=== PATIENT | female | born 1955 | race Caucasian/White ===

== ENCOUNTER 2018-06-04 12:26 | Emergency (ER) | payer OTHER ==
[2018-06-04 13:17] VITALS: BP 139/74
--- NOTE | 2018-06-04 13:58 | EDM.PDOC ---
ED HPI GENERAL MEDICAL PROBLEM - General Chief Complaint: Lower Extremity Injury/Pain Stated Complaint: LEG SWOLLEN AND PAINFUL TO TOUCH Time Seen by Provider: 06/04/18 12:35 Source of Information: Reports: Patient History Limitations: Reports: No Limitations - History of Present Illness INITIAL COMMENTS - FREE TEXT/NARRATIVE: The patient presents with a couple lumps to her left lower leg. She noticed them a couple days ago. She has mild tenderness with palpation. She has no injury to her leg. She has no chest pain or shortness of breath. She has no history of DVT or PE. She did not injure her leg. Onset: Gradual Duration: Day(s): (2) Location: Reports: Lower Extremity, Left (posterior calf) Quality: Reports: Ache Severity: Mild Improves with: Reports: None Worsens with: Reports: None Associated Symptoms: Reports: No Other Symptoms Left Posterior Leg Pain Score (Numeric/FACES): 6 - Related Data Allergies Allergy/AdvReac Type Severity Reaction Status Date / Time codeine Allergy Hives Verified 08/28/14 02:26 levofloxacin [From Levaquin] Allergy Cannot Verified 08/28/14 02:26 Remember prochlorperazine edisylate Allergy Anxiety Verified 08/28/14 02:26 [From Compazine] prochlorperazine maleate Allergy Anxiety Verified 08/28/14 02:26 [From Compazine] Home Meds: Home Meds Venlafaxine [Effexor XR] 75 mg PO DAILY 08/28/14 [History] Cholecalciferol (Vitamin D3) [Vitamin D3] 5,000 unit PO ASDIRECTED 06/04/18 [ History] Past Medical History - Past Health History Medical/Surgical History: Denies Medical/Surgical History Cardiovascular History: Reports: High Cholesterol Gastrointestinal History: Reports: Chronic Constipation Musculoskeletal History: Reports: Other (See Below) Other Musculoskeletal History: tennis elbows Psychiatric History: Reports: Depression, Other (See Below) Other Psychiatric History: used for menopause Social & Family History - Tobacco Use Smoking Status *Q: Never Smoker - Caffeine Use Caffeine Use: Reports: Coffee - Recreational Drug Use Recreational Drug Use: No Review of Systems - Review of Systems Review Of Systems: See Below Constitutional: Reports: No Symptoms Eyes: Reports: No Symptoms Ears: Reports: No Symptoms Nose: Reports: No Symptoms Mouth/Throat: Reports: No Symptoms Respiratory: Reports: No Symptoms Cardiovascular: Reports: No Symptoms GI/Abdominal: Reports: No Symptoms Genitourinary: Reports: No Symptoms Musculoskeletal: Reports: Other (2 lumps to the back of her left lower leg) ED EXAM, GENERAL - Physical Exam Exam: See Below Exam Limited By: No Limitations General Appearance: Alert, No Apparent Distress Ears: Normal External Exam Nose: Normal Inspection Head: Atraumatic, Normocephalic Neck: Normal Inspection Respiratory/Chest: No Respiratory Distress, Lungs Clear, Normal Breath Sounds Cardiovascular: Regular Rate, Rhythm, No Edema, No Murmur GI/Abdominal: Soft, Non-Tender, No Organomegaly, No Mass Extremities: Other (2 lumps to the left lower posterior leg. No pain upon palpation to the left leg. Good sensation and pulses distally.) Course - Vital Signs Last Recorded V/S: Last Vital Signs Temp 97.1 F 06/04/18 13:10 Pulse 81 06/04/18 13:10 Resp 20 06/04/18 13:10 BP 139/74 06/04/18 13:10 Pulse Ox 98 06/04/18 13:10 - Orders/Labs/Meds Orders: Active Orders 24 hr Category Date Time Status VL Duplex Lwr Ext Veins Ltd Lt [US] Stat Exams 06/04/18 12:50 Taken - Re-Assessments/Exams Free Text/Narrative Re-Assessment/Exam: 06/04/18 14:34 I did an US of her left leg and she has a superficial thrombophlebitis. 06/04/18 14:57 She cannot take aspirin. I will have her take some antiinflammatories and have her wear some compression hose and follow up with her doctor. Departure - Departure Time of Disposition: 15:00 Disposition: Home, Self-Care 01 Condition: Good Clinical Impression: Superficial thrombophlebitis of left leg - Discharge Information *PRESCRIPTION DRUG MONITORING PROGRAM REVIEWED*: No *COPY OF PRESCRIPTION DRUG MONITORING REPORT IN PATIENT CARMEN[place]A: No Referrals: Ml Grimaldo NP [Primary Care Provider] - 1 Week Forms: ED Department Discharge Additional Instructions: Wear compression stocking. Take the antiinflammatory as prescribed for a few days. Put warm compresses on the affected area 3 times per day for 3 days. Follow up with your doctor in 1 week. Please return if you are worse such as more pain, shortness of breath or chest pain. - My Orders Last 24 Hours: My Active Orders 06/04/18 12:50 VL Duplex Lwr Ext Veins Ltd Lt [US] Stat - Assessment/Plan Last 24 Hours: My Active Orders 06/04/18 12:50 VL Duplex Lwr Ext Veins Ltd Lt [US] Stat
--- NOTE | 2018-06-05 07:13 | US ---
Left lower extremity deep venous ultrasound: Duplex and color flow imaging was obtained of the left common femoral, proximal greater saphenous, superficial femoral, popliteal, posterior tibial and peroneal veins. Right common femoral vein was also evaluated. Findings: Thrombosed calf vein is seen. Normal phasic flow, augmentation and compression are otherwise seen within the deep veins. Impression: 1. Thrombosed calf pain compatible with thrombophlebitis. 2. No evidence of deep venous thrombosis is seen within the left lower extremity or within the right common femoral vein. Diagnostic code #3 Agree with preliminary report issued by [facility] ([facility] preliminary report dictated on 06/04/18, 3:42 PM Central Time)
== END 2018-06-04 15:15 | disposition home or self-care (01) ==
LOC: JD.ED 12:26
DX: I80.02 Phlebitis and thrombophlebitis of superficial vessels of left lower extremity (principal); E78.00 Pure hypercholesterolemia, unspecified; Z79.899 Other long term (current) drug therapy
CPT/HCPCS: 93971-26-LT; 93971-LT; 99283-25

== ENCOUNTER 2019-10-31 16:43 | Inpatient (IN) | payer OTHER ==
[2019-10-31] MEDS ORDERED: HYDROmorphone 0.5 MG/0.5 ML Syringe IVPUSH ONE ×3 (17:08→20:15)
[2019-10-31] MEDS ORDERED: Metoclopramide 10 MG/2 ML SDV IVPUSH ONE (17:08)
--- NOTE | 2019-10-31 17:12 | EDM.PDOC ---
ED HPI GENERAL MEDICAL PROBLEM - General Chief Complaint: Abdominal Pain Stated Complaint: [facility] Time Seen by Provider: 10/31/19 17:05 Source of Information: Reports: Patient History Limitations: Reports: No Limitations - History of Present Illness INITIAL COMMENTS - FREE TEXT/NARRATIVE: 63-year-old female presents to the ED with acute onset of diffuse epigastric abdominal pain that radiates through to her back. Her abdomen and perhaps slightly suprapubically. No fever or chills. She started to feel very nauseated at work but could not vomit. Coworkers finally got her to go home. Denies that she had not eaten all day and perhaps she was just hungry. She therefore went picked up a hamburger and ate it when she got home. Within 10 to 15 minutes she developed markedly increased severe epigastric pain with associated feeling like she was going to faint with increased nausea. She never did vomit. She has not had any diarrhea. Last bowel movement was yesterday. It seems to radiate through to the epigastrium right through to the mid back. It does hurt to take a deep breath. She did drink some coke and burping perhaps helped ease some of the discomfort. Lay down on her bed for a while but felt increasingly unwell and went to lay down on the cool bathroom floor. Her daughter phoned and no one answered the phone and therefore the ambulance was dispatched to her home. They identified her to be very nauseated and significant epigastric pain. She has been given Zofran 4 mg IV with no relief of the pain. Is had no previous abdominal surgery. She does have a history of renal colic and microhematuria. Patient reports that she does take a medication called Repatha--cutaneous medication once weekly for dyslipidemia. She takes this on Sundays. She always feels a little unwell for a couple of days after taking this medication. Search of this medicine is not known to cause biliary colic or pancreatitis. It can cause a gastroenteritis or diarrhea pattern. Onset: Today Onset Date: 10/31/19 Onset Time: 15:00 Duration: Hour(s): Location: Reports: Abdomen (Gastric pain radiating through to the mid back.) Quality: Reports: Ache (Pain is deep aching boring with a slight colicky component.) Severity: Severe (Was as bad as a 8-9 out of 10 after eating a hamburger.) Improves with: Reports: None Worsens with: Reports: Eating Context: Reports: Other (Continuous occurrence.). Denies: Activity (Seem to make it much worse.), Exercise, Lifting, Sick Contact, Trauma Associated Symptoms: Reports: Chest Pain, Diaphoresis, Loss of Appetite, Nausea/ Vomiting, Weakness. 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: IV/IO, Other (see below) Upper Abdomen Pain Score (Numeric/FACES): 8 - Related Data Allergies Allergy/AdvReac Type Severity Reaction Status Date / Time codeine Allergy Hives Verified 10/31/19 16:51 levofloxacin [From Levaquin] Allergy Cannot Verified 10/31/19 16:51 Remember prochlorperazine edisylate Allergy Anxiety Verified 10/31/19 16:51 [From Compazine] prochlorperazine maleate Allergy Anxiety Verified 10/31/19 16:51 [From Compazine] Home Meds: Home Meds Venlafaxine [Effexor XR] 75 mg PO DAILY 08/28/14 [History] Cholecalciferol (Vitamin D3) [Vitamin D3] 5,000 unit PO ASDIRECTED 06/04/18 [ History] Ascorbic Acid 500 mg PO DAILY 10/31/19 [History] Evolocumab [Repatha Syringe] 1 injection INJECT ASDIRECTED 10/31/19 [History] LORazepam [Ativan] 0.5 mg PO Q4HR PRN 10/31/19 [History] Past Medical History - Past Health History Medical/Surgical History: Denies Medical/Surgical History HEENT History: Reports: Impaired Vision Cardiovascular History: Reports: High Cholesterol Respiratory History: Reports: None Gastrointestinal History: Reports: Chronic Constipation Genitourinary History: Reports: None 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: 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 Musculoskeletal History: Reports: Other (See Below) Other Musculoskeletal History: tennis elbows Neurological History: Reports: None Psychiatric History: Reports: Depression Other Psychiatric History: used for menopause Endocrine/Metabolic History: Reports: None Hematologic History: Reports: None Immunologic History: Reports: None Oncologic (Cancer) History: Reports: None Dermatologic History: Reports: None - Infectious Disease History Infectious Disease History: Reports: None Social & Family History - Tobacco Use Smoking Status *Q: Never Smoker - Caffeine Use Caffeine Use: Reports: Coffee, Soda - Recreational Drug Use Recreational Drug Use: No - Living Situation & Occupation Living situation: Reports: (Employed) Occupation: Employed ED ROS GENERAL - Review of Systems Review Of Systems: See Below Constitutional: Reports: Malaise, Weakness, Fatigue, Diaphoresis (With the severe epigastric abdominal pain). Denies: Fever, Chills HEENT: Reports: Glasses Respiratory: Reports: Shortness of Breath. Denies: Wheezing, Pleuritic Chest Pain (Taking full deep breath makes the abdominal pain worse.), Cough Cardiovascular: Reports: Chest Pain (Pressure in the lower retrosternal chest), Lightheadedness (Patient with a severe pain. [place] like she might faint). Denies: Blood Pressure Problem, Claudication, Dyspnea on Exertion, Edema, Orthopnea, Palpitations Endocrine: Reports: Fatigue GI/Abdominal: Reports: Abdominal Pain, Constipation, Nausea. Denies: Vomiting : Reports: No Symptoms Musculoskeletal: Reports: Joint Pain (Times she has knee and hip and low back pain) Skin: Reports: No Symptoms Neurological: Reports: Dizziness (He notes lightheadedness and near syncopal feeling with the severity of the pain.) Psychiatric: Reports: Anxiety, Depression (On antidepressant medication.) Hematologic/Lymphatic: Reports: No Symptoms Immunologic: Reports: No Symptoms ED EXAM, GI/ABD - Physical Exam Exam: See Below Exam Limited By: No Limitations General Appearance: Alert, WD/WN, Moderate Distress, Other (All having quite a bit of epigastric abdominal pain. Signs show temperature of 36.4 with a heart rate of 71. Respiratory to 16. BP 159/86 pulse ox 98% on room air.) Eyes: Bilateral: Normal Appearance (No scleral icterus.) Throat/Mouth: Normal Inspection, Normal Lips, Normal Teeth, Normal Oropharynx Head: Atraumatic, Normocephalic Neck: Normal Inspection, Supple, Non-Tender, Full Range of Motion. No: Lymphadenopathy (L), Lymphadenopathy (R) Respiratory/Chest: No Respiratory Distress, Lungs Clear, Normal Breath Sounds, No Accessory Muscle Use Cardiovascular: Normal Peripheral Pulses, Regular Rate, Rhythm, No Edema, No Gallop, No Murmur, No Rub GI/Abdominal Exam: No Organomegaly, No Distention, No Mass, Pelvis Stable, Tender (Is very tender to palpation in the epigastrium and right upper quadrant of the abdomen with a positive Wiley sign.), Abnormal Bowel Sounds. No: Distended Back Exam: Normal Inspection, Full Range of Motion. No: CVA Tenderness (L), CVA Tenderness (R) Extremities: Normal Inspection, Normal Range of Motion, Non-Tender. No: Pedal Edema Neurological: Alert, Oriented, CN II-XII Intact, Normal Cognition Psychiatric: Normal Affect, Normal Mood Skin Exam: Warm, Dry, Intact, Normal Color, No Rash Course - Vital Signs Last Recorded V/S: Last Vital Signs Temp 36.2 C 10/31/19 18:09 Pulse 94 10/31/19 18:09 Resp 18 10/31/19 18:09 BP 155/75 H 10/31/19 18:09 Pulse Ox 99 10/31/19 18:09 - Orders/Labs/Meds Orders: Active Orders 24 hr Category Date Time Status Abdomen Pelvis w Cont [CT] Stat Exams 10/31/19 20:33 Ordered GLYCOSYLATED HEMOGLOBIN,HGBA1C [CHEM] Stat Lab 10/31/19 20:15 Ordered LIPASE [CHEM] Stat Lab 10/31/19 20:14 Ordered TRIGLYCERIDES [CHEM] Stat Lab 10/31/19 20:32 Ordered Dextrose 5%-0.9% NaCl [Dextrose 5%-Normal Saline] 1,000 Med 10/31/19 17:15 Active ml IV ASDIRECTED Ketorolac [Toradol] Med 10/31/19 17:15 Active 30 mg IVPUSH ONETIME Medication Orders Dextrose/Sodium Chloride (Dextrose 5%-Normal Saline) 1,000 mls @ 999 mls/hr IV ASDIRECTED ELINA Last Admin: 10/31/19 17:22 Dose: 999 mls/hr Ketorolac Tromethamine (Toradol) 30 mg IVPUSH ONETIME ELINA Last Admin: 10/31/19 17:20 Dose: 30 mg Labs: Laboratory Tests 10/31/19 10/31/19 10/31/19 Range/Units 18:32 18:32 18:32 WBC 7.65 (3.98-10.04) K/mm3 RBC 4.38 (3.98-5.22) M/mm3 Hgb 13.1 D (11.2-15.7) gm/dl Hct 41.5 (34.1-44.9) % MCV 94.7 D (79.4-94.8) fl MCH 29.9 (25.6-32.2) pg MCHC 31.6 L (32.2-35.5) g/dl RDW Std Deviation 41.4 (36.4-46.3) fL Plt Count 145 L (182-369) K/mm3 MPV 11.5 (9.4-12.3) fl Neut % (Auto) 81.2 H (34.0-71.1) % Lymph % (Auto) 14.5 L (19.3-51.7) % [place] % (Auto) 3.7 L (4.7-12.5) % Eos % (Auto) 0.4 L (0.7-5.8) Baso % (Auto) 0.1 (0.1-1.2) % Neut # (Auto) 6.21 H (1.56-6.13) K/mm3 Lymph # (Auto) 1.11 L (1.18-3.74) K/mm3 [place] # (Auto) 0.28 (0.24-0.36) K/mm3 Eos # (Auto) 0.03 L (0.04-0.36) K/mm3 Baso # (Auto) 0.01 (0.01-0.08) K/mm3 PT 10.7 (9.7-12.0) SECONDS INR 0.98 APTT 23 (22-31) SECONDS Sodium 143 (136-145) mEq/L Potassium 4.0 (3.5-5.1) mEq/L Chloride 108 H (98-107) mEq/L Carbon Dioxide 27 (21-32) mEq/L Anion Gap 12.0 (5-15) BUN 12 (7-18) mg/dL Creatinine 1.0 (0.55-1.02) mg/dL Est Cr Clr Drug Dosing 54.60 mL/min Estimated GFR (MDRD) 56 (>60) mL/min BUN/Creatinine Ratio 12.0 L (14-18) Glucose 281 H (80-115) mg/dL Calcium 8.1 L (8.5-10.1) mg/dL Magnesium 1.7 L (1.8-2.4) mg/dl Total Bilirubin 0.3 (0.2-1.0) mg/dL GGT 21 (5-55) U/L AST 22 (15-37) U/L ALT 33 (14-59) U/L Alkaline Phosphatase 87 (46-116) U/L Troponin I < 0.017 (0.00-0.056) ng/mL C-Reactive Protein 0.5 (<1.0) mg/dL Total Protein 6.5 (6.4-8.2) g/dl Albumin 3.3 L (3.4-5.0) g/dl Globulin 3.2 gm/dL Albumin/Globulin Ratio 1.0 (1-2) Amylase 3532 H* (25-115) U/L Urine Color (Yellow) Urine Appearance (Clear) Urine pH (5.0-8.0) Ur Specific [place] (1.005-1.030) Urine Protein (Negative) Urine Glucose (UA) (Negative) Urine Ketones (Negative) Urine Occult Blood (Negative) Urine Nitrite (Negative) Urine Bilirubin (Negative) Urine Urobilinogen (0.2-1.0) Ur Leukocyte Esterase (Negative) Urine RBC (0-5) /hpf Urine WBC (0-5) /hpf Ur Squamous Epith Cells (0-5) /hpf Urine Bacteria (FEW) /hpf Urine Mucus (FEW) /hpf 10/31/19 Range/Units 19:43 WBC (3.98-10.04) K/mm3 RBC (3.98-5.22) M/mm3 Hgb (11.2-15.7) gm/dl Hct (34.1-44.9) % MCV (79.4-94.8) fl MCH (25.6-32.2) pg MCHC (32.2-35.5) g/dl RDW Std Deviation (36.4-46.3) fL Plt Count (182-369) K/mm3 MPV (9.4-12.3) fl Neut % (Auto) (34.0-71.1) % Lymph % (Auto) (19.3-51.7) % [place] % (Auto) (4.7-12.5) % Eos % (Auto) (0.7-5.8) Baso % (Auto) (0.1-1.2) % Neut # (Auto) (1.56-6.13) K/mm3 Lymph # (Auto) (1.18-3.74) K/mm3 [place] # (Auto) (0.24-0.36) K/mm3 Eos # (Auto) (0.04-0.36) K/mm3 Baso # (Auto) (0.01-0.08) K/mm3 PT (9.7-12.0) SECONDS INR APTT (22-31) SECONDS Sodium (136-145) mEq/L Potassium (3.5-5.1) mEq/L Chloride (98-107) mEq/L Carbon Dioxide (21-32) mEq/L Anion Gap (5-15) BUN (7-18) mg/dL Creatinine (0.55-1.02) mg/dL Est Cr Clr Drug Dosing mL/min Estimated GFR (MDRD) (>60) mL/min BUN/Creatinine Ratio (14-18) Glucose (80-115) mg/dL Calcium (8.5-10.1) mg/dL Magnesium (1.8-2.4) mg/dl Total Bilirubin (0.2-1.0) mg/dL GGT (5-55) U/L AST (15-37) U/L ALT (14-59) U/L Alkaline Phosphatase (46-116) U/L Troponin I (0.00-0.056) ng/mL C-Reactive Protein (<1.0) mg/dL Total Protein (6.4-8.2) g/dl Albumin (3.4-5.0) g/dl Globulin gm/dL Albumin/Globulin Ratio (1-2) Amylase (25-115) U/L Urine Color Light yellow (Yellow) Urine Appearance Clear (Clear) Urine pH 6.5 (5.0-8.0) Ur Specific [place] 1.025 (1.005-1.030) Urine Protein Negative (Negative) Urine Glucose (UA) 2+ H (Negative) Urine Ketones Negative (Negative) Urine Occult Blood Negative (Negative) Urine Nitrite Negative (Negative) Urine Bilirubin Negative (Negative) Urine Urobilinogen 0.2 (0.2-1.0) Ur Leukocyte Esterase Negative (Negative) Urine RBC 0-5 (0-5) /hpf Urine WBC 0-5 (0-5) /hpf Ur Squamous Epith Cells 0-5 (0-5) /hpf Urine Bacteria Rare (FEW) /hpf Urine Mucus Rare (FEW) /hpf Meds: Medications Generic Name Dose Route Start Last Admin Trade Name Freq PRN Reason Stop Dose Admin Dextrose/Sodium Chloride 1,000 mls @ 999 mls/hr 10/31/19 17:15 10/31/19 17:22 Dextrose 5%-Normal Saline IV 999 mls/hr ASDIRECTED ELINA Administration Ketorolac Tromethamine 30 mg 10/31/19 17:15 10/31/19 17:20 Toradol IVPUSH 30 mg ONETIME ELINA Administration Discontinued Medications Generic Name Dose Route Start Last Admin Trade Name Freq PRN Reason Stop Dose Admin Hydromorphone HCl 0.25 mg 10/31/19 17:08 10/31/19 17:18 Dilaudid IVPUSH 10/31/19 17:09 0.25 mg ONETIME ONE Administration Hydromorphone HCl 0.5 mg 10/31/19 17:48 10/31/19 18:07 Dilaudid IVPUSH 10/31/19 17:49 0.5 mg ONETIME ONE Administration Hydromorphone HCl 0.5 mg 10/31/19 20:15 10/31/19 20:23 Dilaudid IVPUSH 10/31/19 20:16 0.5 mg ONETIME ONE Administration Metoclopramide HCl 5 mg 10/31/19 17:08 10/31/19 17:16 Reglan IVPUSH 10/31/19 17:09 5 mg ONETIME ONE Administration - Radiology Interpretation Free Text/Narrative:: 63-year-old female presents to the ED with acute onset of severe epigastric perhaps left upper quadrant abdominal pain rating through to her back while at work [employer] this afternoon. The discomfort was associate with development of significant nausea but she could not vomit. Eventually she left work and went home. She recognized that she had not yet eaten today and therefore picked up a hamburger on the way home. After she ate this hamburger the pain intensified about 10 times. She felt like she was going to pass out. She was diaphoretic and nausea increased in intensity. It was felt mostly in her epigastrium radiating through to her mid back. Is still present but not nearly as intense as it was. Because she did not answer the phone after calling her daughter paramedics were dispatched to her home. They found her lying on the bathroom floor trying to cool down due to illness. An IV was started and she was given Zofran 4 mg IV in route to the hospital. She admits that she is very sensitive to pain medication and gets loopy easily. Therefore requests small doses of analgesia. Examination is compatible with acute biliary colic with marked tenderness in the epigastrium and right upper quadrant of the abdomen along the costal margin. She does have a positive Wiley sign. I will ultrasound her gallbladder after KUB and labs are collected. IV will be D5 normal saline at open. She will be given Reglan 5 mg IV with Toradol 30 mg IV and Dilaudid 0.25 mg IV. - Re-Assessments/Exams Free Text/Narrative Re-Assessment/Exam: 10/31/19 17:46 KUB reveals sparsity of stool throughout the colon but also no gas within the small bowel and very sparse amounts of gas within the large bowel but there is gas in the rectal vault. Appears to be a mild ileus-like pattern. There is no signs of bowel obstruction. Bedside ultrasound performed and I was able to visualize the gallbladder fairly well considering she just ate. There possibly is a small stone in the neck of the gallbladder but there was no thickening of the gallbladder wall or pericholecystic fluid. I visualize the common bile duct well enough to comment. [place] pain is better but she can take a little bit more pain medication. We will therefore repeat Dilaudid 0.25 mg IV. 10/31/19 19:26 White count is 7.65 with 81% neutrophils and no bands cells reported. Hemoglobin is 13.1 with hematocrit of 41.5. MCV is mildly elevated at 94.7. Platelet counts 145,000. PT is 10.7 with an INR of 0.98. PTT is 23 sodium 143 with a potassium of 4.0. Chloride 108 with a bicarb of 27. Anion gap is normal at 12.0. BUN is 12 with a creatinine of 1.0 hours 56. Kos is elevated at 281. Calcium is 8.1 with a magnesium of 1.7. Slightly low. Liver function is completely normal alk phos days is 83. GGT is 21. Troponin I is less than 0.017. C-reactive protein is 0.5 total protein is 6.5 with slightly low albumin fraction at 3.3. Amylase is pending. 10/31/19 20:16 these came back markedly elevated at 3532. This confirms clinical suspicion of acute pancreatitis most likely secondary to the use of Repatha [place] she takes subcutaneously every 2 weeks for reduction of triglycerides and cholesterol. Appreciated that the last 3 times she has taken this drug she has developed vague abdominal pain to the point that she cannot participate in normal activities or go to work for a day or so. She never uses any alcohol. She has not had any abdominal trauma. Her cholesterol is very low apparently on the Repatha. She is on Effexor 75 mg ER but has been on this medication for a lengthy period of time and this medication can cause pancreatitis. Order a serum lipase. We do have one observation bed left in the hospital and I will speak to the hospitalist in this regard. IV will be normal saline at 125 mils per hour at this time. Her blood sugar is elevated I will make sure she is not diabetic by doing a glycosylated protein. She is having more pain at this time and she was given another 0.5 mg dose of Dilaudid. Will ask Dr. Singh whether or not she wishes to pursue a CT of the abdomen tonight. 10/31/19 20:[address] Singh on-call hospitalist and she has agreed to admission to the [facility] floor on telemetry per observation status which is the last been in the hospital. He has asked that I perform a CT of the abdomen with IV contrast to have a better look at her pancreas. She also asked me to order a serum triglyceride level which I will do. Departure - Departure Time of Disposition: 20:40 Disposition: Home, Self-Care 01 Condition: Fair Clinical Impression: Pancreatitis, acute Qualifiers: Pancreatitis type: drug induced Acute pancreatitis complication: no infection or necrosis Qualified Code(s): K85.30 - Drug induced acute pancreatitis without necrosis or infection Abdominal pain Qualifiers: Abdominal location: epigastric Qualified Code(s): R10.13 - Epigastric pain - Discharge Information *PRESCRIPTION DRUG MONITORING PROGRAM REVIEWED*: Not Applicable *COPY OF PRESCRIPTION DRUG MONITORING REPORT IN PATIENT [facility]: Not Applicable Referrals: PCP,Unknown [Ordering Only Provider] - Forms: ED Department Discharge Sepsis Event Note - Evaluation Sepsis Screening Result: No Definite Risk - Focused Exam Vital Signs: Vital Signs Temp Pulse Resp BP Pulse Ox 10/31/19 18:09 36.2 C 94 18 155/75 H 99 10/31/19 16:47 36.4 C 71 16 159/86 H 98 Date Exam was Performed: 10/31/19 Time Exam was Performed: 20:34 - My Orders Last 24 Hours: My Active Orders 10/31/19 17:15 Dextrose 5%-0.9% NaCl [Dextrose 5%-Normal Saline] 1,000 ml IV ASDIRECTED Ketorolac [Toradol] 30 mg IVPUSH ONETIME 10/31/19 20:14 LIPASE [CHEM] Stat 10/31/19 20:15 GLYCOSYLATED HEMOGLOBIN,HGBA1C [CHEM] Stat 10/31/19 20:32 TRIGLYCERIDES [CHEM] Stat 10/31/19 20:33 Abdomen Pelvis w Cont [CT] Stat - Assessment/Plan Last 24 Hours: My Active Orders 10/31/19 17:15 Dextrose 5%-0.9% NaCl [Dextrose 5%-Normal Saline] 1,000 ml IV ASDIRECTED Ketorolac [Toradol] 30 mg IVPUSH ONETIME 10/31/19 20:14 LIPASE [CHEM] Stat 10/31/19 20:15 GLYCOSYLATED HEMOGLOBIN,HGBA1C [CHEM] Stat 10/31/19 20:32 TRIGLYCERIDES [CHEM] Stat 10/31/19 20:33 Abdomen Pelvis w Cont [CT] Stat
[2019-10-31] MEDS ORDERED: Dextrose 5%-0.9% NaCl 1,000 ML IV SCH (17:15)
[2019-10-31] MEDS ORDERED: Ketorolac 30 MG/ML SDV IVPUSH SCH (17:15)
--- NOTE | 2019-10-31 17:49 | CR ---
Abdomen: Supine view of the abdomen was obtained. Comparison: Prior abdominal x-ray of 08/28/14. Calcifications are seen within the pelvis which are compatible with phleboliths. Bowel gas pattern appears normal. Slight scarring is noted within the lung bases. No soft tissue abnormality is appreciated. Bony structures appear within normal limits for the patient's age. Impression: 1. Nothing acute is seen on supine abdominal x-ray. Diagnostic code #2 This report was dictated in [place] Standard Time
[2019-10-31 20:50] LABS: HEMOGLOBIN A1C 6.1 % (4.50-6.20)
[2019-10-31] MEDS ORDERED: Morphine 2 MG/ML Syringe IVPUSH PRN (23:56)
[2019-10-31] MEDS ORDERED: Ondansetron 4 MG/2 ML SDV IV PRN (23:56)
--- NOTE | 2019-11-01 00:30 | PCM.HP.2 ---
H&P History of Present Illness - General Date of Service: 10/31/19 Admit Problem/Dx: Admission Diagnosis/Problem Admission Diagnosis/Problem Pancreatitis - History of Present Illness Initial Comments - Free Text/Narative: This is a 63 year old female with past medical history of DLD who comes to the ED complaining of severe abdominal pain for a couple of hours. As per patient she was in usual health up until this afternoon when she started having pain located in epigastrium, described as sharp and stabbing, graded 6-7/ 10 associated with nausea that radiated to her back She had the sensation of wanting to burp but couldn't so she decided to drink a soda to see if symptoms would improve but they didn't so she went home from work She decided to stop for a burger on her way home and after eating that is when her pain became severe, same quality but graded 15/10, she described sensation of feeling like her stomach was going to explode for which she called EMS and was brought to the ED for further evaluation. She denies any vomiting, diarrhea, constipation, chest pain , palpitations, fever. Symptom Onset Date: 10/31/19 Quality: Reports: Sharp, Stabbing Severity: Severe Improves with: Reports: None Worsens with: Reports: Eating Context: Reports: Rest. Denies: Sick Contact, Activity/Exercise, Lifting, Exertion, Trauma, Travel Associated Symptoms: Denies: Chest Pain, Cough, cough w sputum, Diaphoresis, Fever/Chills, Headaches, Loss of Appetite, Malaise, Nausea/Vomiting, Rash, Seizure, Shortness of Breath, Syncope, Weakness Upper Abdomen Pain Score (Numeric/FACES): 8 - Related Data Allergies/Adverse Reactions: Allergies Allergy/AdvReac Type Severity Reaction Status Date / Time codeine Allergy Hives Verified 10/31/19 16:51 levofloxacin [From Levaquin] Allergy Cannot Verified 10/31/19 16:51 Remember prochlorperazine edisylate Allergy Anxiety Verified 10/31/19 16:51 [From Compazine] prochlorperazine maleate Allergy Anxiety Verified 10/31/19 16:51 [From Compazine] Home Medications: Home Meds Venlafaxine [Effexor XR] 75 mg PO BEDTIME 08/28/14 [History] Cholecalciferol (Vitamin D3) [Vitamin D3] 5,000 unit PO ASDIRECTED 06/04/18 [ History] Acetaminophen [Tylenol] 325 mg PO Q4H PRN 10/31/19 [History] Ascorbic Acid 500 mg PO DAILY 10/31/19 [History] Evolocumab [Repatha Syringe] 1 injection INJECT ASDIRECTED 10/31/19 [History] [place]-3/DHA/Epa/Fish Oil [Fish Oil 1,000 mg Softgel] 1 each PO DAILY 10/31/19 [ History] Past Medical History - Past Health History Medical/Surgical History: Denies Medical/Surgical History HEENT History: Reports: Impaired Vision Cardiovascular History: Reports: High Cholesterol Respiratory History: Reports: None Gastrointestinal History: Reports: Chronic Constipation Genitourinary History: Reports: None TECHNICAL OPERATIONS SPECIALIST History: Reports: None Musculoskeletal History: Reports: Other (See Below) Other Musculoskeletal History: tennis elbows Neurological History: Reports: None Psychiatric History: Reports: Depression Other Psychiatric History: used for menopause Endocrine/Metabolic History: Reports: None Hematologic History: Reports: None Immunologic History: Reports: None Oncologic (Cancer) History: Reports: None Dermatologic History: Reports: None - Infectious Disease History Infectious Disease History: Reports: None Social & Family History - Tobacco Use Smoking Status *Q: Never Smoker - Caffeine Use Caffeine Use: Reports: Coffee, Soda - Recreational Drug Use Recreational Drug Use: No - Living Situation & Occupation Living situation: Reports: (Employed) Occupation: Employed H&P Review of Systems - Review of Systems: Review Of Systems: See Below General: Denies: Fever, Chills, Malaise, Weakness, Fatigue, Night Sweats, Diaphoresis, Decreased Appetite, Weight Loss HEENT: Denies: Headaches, Hearing Changes, Rhinitis, Post Nasal Drip, Sinus Congestion, Sore Throat, Vertigo, Visual Changes Pulmonary: Denies: Shortness of Breath, Wheezing, Pleuritic Chest Pain, Cough, Sputum, Hemoptysis Cardiovascular: Denies: Chest Pain, Palpitations, Dyspnea on Exertion, Orthopnea , PND, Edema, Lightheadedness, Syncope Gastrointestinal: Reports: Abdominal Pain, Distension, Nausea. Denies: Anorexia , Black Stool, Bloody Stool, Constipation, Diarrhea, Decreased Appetite, Difficulty Swallowing, Flatus, Hematemesis, Hematochezia, Melena, Mucous in Stool, Stool Incontinence, Vomiting Genitourinary: Denies: Dysuria, Frequency, Burning, Pain, Urgency, Incontinence , Hematuria, Retention, Discharge Musculoskeletal: Denies: Joint Pain, Joint Swelling, Muscle Pain, Muscle Stiffness Skin: Denies: Cyanosis, Jaundice, Pallor, Diaphoresis Psychiatric: Denies: Confusion, Depression, Mood Lability, Anxiety Neurological: Denies: Dizziness, Headache, Numbness, Paresthesia Hematologic/Lymphatic: Denies: Anemia, Easy Bleeding, Easy Bruising Exam - Exam Exam: See Below - Vital Signs Vital Signs: Last Vital Signs Temp 97.2 F 10/31/19 18:09 Pulse 94 10/31/19 18:09 Resp 18 10/31/19 18:09 BP 155/75 H 10/31/19 18:09 Pulse Ox 99 10/31/19 18:09 Weight: 73.936 kg - Exam Quality Assessment: No: Supplemental Oxygen, Central Line/PICC General: Alert, Oriented, Cooperative, Mild Distress HEENT: Conjunctiva Clear, EOMI. No: Mucosa Moist & [place] (dry mucosa) Neck: Supple, Trachea Midline, +2 Carotid Pulse wo Bruit, Full Range of Motion. No: Lymphadenopathy Lungs: Clear to Auscultation, Normal Respiratory Effort. No: Crackles, Rales, Rhonchi, Rub, Wheezing Cardiovascular: Regular Rate, Regular Rhythm. No: Systolic Murmur, Diastolic Murmur, Rubs, Gallop/S3, Gallop/S4 GI/Abdominal Exam: Tender (Exquisite tenderness over epigastrium but tender throughtout, unable to auscultate any bowel sounds) Extremities: Normal Inspection, Normal Range of Motion, Non-Tender, No Pedal Edema, Normal Capillary Refill Peripheral Pulses: 2+: Radial (L), Radial (R), Dorsalis Pedis (L), Dorsalis Pedis (R) Neuro Extensive - Mental Status: Alert, Oriented x3, Normal Mood/Affect Psychiatric: Alert (depressed affect) - Patient Data Result Diagrams: 10/31/19 18:32 10/31/19 18:32 Sepsis Event Note - Evaluation Sepsis Screening Result: No Definite Risk - Focused Exam Vital Signs: Vital Signs Temp Pulse Resp BP Pulse Ox 10/31/19 18:09 97.2 F 94 18 155/75 H 99 10/31/19 16:47 97.6 F 71 16 159/86 H 98 Date Exam was Performed: 11/01/19 Time Exam was Performed: 00:31 - Problem List (1) Dyslipidemia SNOMED Code(s): 820781323 ICD Code: E78.5 - HYPERLIPIDEMIA, UNSPECIFIED Status: Acute Current Visit : Yes (2) Depression SNOMED Code(s): 38523634 ICD Code: F32.9 - MAJOR DEPRESSIVE DISORDER, SINGLE EPISODE, UNSPECIFIED Status: Acute Current Visit: Yes (3) Anxiety SNOMED Code(s): 70221632 ICD Code: F41.9 - ANXIETY DISORDER, UNSPECIFIED Status: Acute Current Visit: Yes (4) Abdominal pain SNOMED Code(s): 32945064 ICD Code: R10.9 - UNSPECIFIED ABDOMINAL PAIN Status: Acute Current Visit : Yes Qualifiers: Abdominal location: epigastric Qualified Code(s): R10.13 - Epigastric pain (5) Pancreatitis, acute SNOMED Code(s): 544987559 ICD Code: K85.90 - ACUTE PANCREATITIS WITHOUT NECROSIS OR INFECTION, UNSP Status: Acute Current Visit: Yes Qualifiers: Pancreatitis type: drug induced Acute pancreatitis complication: no infection or necrosis Qualified Code(s): K85.30 - Drug induced acute pancreatitis without necrosis or infection Problem List Initiated/Reviewed/Updated: Yes Assessment/Plan Comment:: Acute pancreatitis, unknown etiology Patient denies drinking alcohol or any other substance and denies use of illicit drugs Possible etiology: * Drug induced, however this is rare < 5% of cases and none of her medications are on the list * Biliary is unlikely due to normal liver function tests * Triglyceridemia is also unlikely since patient verbalizes normal levels 1 week ago * She denies any alcohol ingestion * She denies any trauma * Calcium is normal Patient does not have any signs of SIRS at this time or any other indications that require an ICU admission No signs of acute organ failure at this time, grade is mild Pain control with meperidine, preferably over morphine due to possibility of sphincter of Oddi dysfunction with morphine, but if meperidine doesnt work we will use morphine, will escalate if needed PLAN - 1L fluid bolus with LR - Maintenance rate at 10ml/kg/hr recommended, will start at 100ml/hr and reassess q6h - Goal urine output >0.5ml/kg/hr, 35ml/hr - Goal HR < 120bpm, O2 sat > 95% and MAP between 65-85 - Repeat BUN and Hct in AM, earlier if VS change - Ionized calcium in AM - Pain control with meperidine, preferably over morphine - Glucose checks every 6 hours, if hyperglycemic will start insulin - Triglyceride level STAT - CT abdomen - Abdominal US in AM PROPHYLAXIS DVT- ambulation GI- not indicated CODE STATUS: FULL CODE DISPOSITION: Patient will be admitted for IV fluid repletion and pain control. - Mortality Measure Prognosis:: Good (No signs of SIRS or organ failure)
[2019-11-01] MEDS: Lactated Ringers 1,000 ML IV SCH ×3 (02:19→22:57)
[2019-11-01] MEDS: Meperidine 50 MG/ML Vial IVPUSH PRN ×3 (02:20→15:23)
--- NOTE | 2019-11-01 07:19 | CT ---
CT abdomen and pelvis Technique: Multiple axial sections were obtained from above the dome of the diaphragm inferiorly through the pubic symphysis. Intravenous contrast was utilized. No oral contrast has been given. Comparison: Prior abdominal x-ray performed earlier on the same day (5:25 PM). Findings: Visualized lung bases show mild scattered atelectasis. Diffuse fatty infiltration is identified throughout the liver. Spleen appears within normal limits. Minimal hiatal hernia is present. Adrenal glands show no nodule. Gallbladder contains no calcified gallstones. Diffuse inflammatory change is seen around the pancreas which has the appearance of pancreatitis. No fluid collections are seen at this time. There is inflammatory change extending anteriorly into the mesentery. Kidneys show symmetric contrast enhancement with no hydronephrosis or mass. Aorta shows no aneurysm. No retroperitoneal adenopathy or mesenteric abnormalities are seen. No pelvic mass or adenopathy is seen. No free fluid or other inflammatory change is identified. Delayed images show contrast within the ureters and within the bladder. Bone window settings were reviewed which show mild degenerative change primarily within the apophyseal joints at L4-L5. No acute osseous finding is appreciated. Impression: 1. Diffuse inflammatory change around the pancreas compatible with pancreatitis. No complications of pancreatitis are seen at this time. 2. Fatty infiltration within the liver. 3. Other findings believed to be incidental as noted above. Diagnostic code #3 This report was dictated in [place] Standard Time I agree with preliminary report from [facility], finalized on 10/31/19, 10:57 PM Central Time
--- NOTE | 2019-11-01 08:35 | US ---
Abdominal ultrasound: Multiple real-time images of the abdomen were obtained. Comparison: Prior abdominal ultrasound is not available, prior CT abdomen and pelvis study of 10/31/19 is available. Findings: Liver is diffusely echogenic compatible with fatty infiltration as noted on prior CT exam. There is mild focal fatty sparing near the portal vein. Gallbladder contains no shadowing gallstones. No gallbladder wall thickening is seen. Common bile duct measures at the upper limits of normal at 7 mm. Pancreas is mostly obscured. Kidneys show no hydronephrosis or mass. Spleen appears normal in size. Aorta not seen distally but proximal aorta appears normal. Inferior vena cava is patent. Portal vein shows normal hepatopedal flow. Impression: 1. Fatty infiltration within the liver with focal fatty sparing near the portal vein. 2. No shadowing gallstones or gallbladder wall thickening is noted. Common bile duct measures at the upper limits of normal at 7 mm. 3. No additional abnormality is appreciated. Diagnostic code #3 This report was dictated in [place] Standard Time
[2019-11-01] MEDS ORDERED: Magnesium Sulfate/Water 2 GM in Premix Bag 1 BAG IV ONE (11:30)
[2019-11-01] MEDS: Ketorolac 15 MG/ML SDV IVPUSH PRN (20:31)
--- NOTE | 2019-11-01 21:41 | PCM.PN ---
- General Info Date of Service: 11/01/19 - Patient Data Vitals - Most Recent: Last Vital Signs Temp 98.6 F 11/01/19 20:30 Pulse 94 11/01/19 20:30 Resp 18 11/01/19 20:30 BP 157/75 H 11/01/19 20:30 Pulse Ox 92 L 11/01/19 20:30 Weight - Most Recent: 73.936 kg I&O - Last 24 Hours: Intake & Output 11/01/19 11/01/19 11/01/19 06:59 14:59 22:59 Intake Total 1268 1350 Output Total 650 400 Balance 618 950 Lab Results Last 24 Hours: Laboratory Results - last 24 hr 10/31/19 11/01/19 11/01/19 Range/Units 18:32 06:23 11:36 Sodium (136-145) mEq/L Potassium (3.5-5.1) mEq/L Chloride (98-107) mEq/L Carbon Dioxide (21-32) mEq/L Anion Gap (5-15) BUN (7-18) mg/dL Creatinine (0.55-1.02) mg/dL Est Cr Clr Drug Dosing mL/min Estimated GFR (MDRD) (>60) mL/min BUN/Creatinine Ratio (14-18) Glucose (80-115) mg/dL POC Glucose 110 107 (80-115) mg/dL Calcium (8.5-10.1) mg/dL Phosphorus (2.6-4.7) mg/dL Magnesium (1.8-2.4) mg/dl Total Bilirubin (0.2-1.0) mg/dL AST (15-37) U/L ALT (14-59) U/L Alkaline Phosphatase (46-116) U/L Total Protein (6.4-8.2) g/dl Albumin (3.4-5.0) g/dl Globulin gm/dL Albumin/Globulin Ratio (1-2) Lipase 64007 H (73-393) U/L 11/01/19 11/01/19 Range/Units 15:03 17:41 Sodium 144 (136-145) mEq/L Potassium 4.0 (3.5-5.1) mEq/L Chloride 107 (98-107) mEq/L Carbon Dioxide 30 (21-32) mEq/L Anion Gap 11.0 (5-15) BUN 11 (7-18) mg/dL Creatinine 0.9 (0.55-1.02) mg/dL Est Cr Clr Drug Dosing 60.67 mL/min Estimated GFR (MDRD) > 60 (>60) mL/min BUN/Creatinine Ratio 12.2 L (14-18) Glucose 113 (80-115) mg/dL POC Glucose 106 (80-115) mg/dL Calcium 8.7 (8.5-10.1) mg/dL Phosphorus 3.0 (2.6-4.7) mg/dL Magnesium 2.6 H (1.8-2.4) mg/dl Total Bilirubin 0.4 (0.2-1.0) mg/dL AST 17 (15-37) U/L ALT 29 (14-59) U/L Alkaline Phosphatase 88 (46-116) U/L Total Protein 6.3 L (6.4-8.2) g/dl Albumin 3.2 L (3.4-5.0) g/dl Globulin 3.1 gm/dL Albumin/Globulin Ratio 1.0 (1-2) Lipase (73-393) U/L Med Orders - Current: Current Medications Lactated Ringer's (Ringers, Lactated) 1,000 mls @ 100 mls/hr IV ASDIRECTED [facility] Stop: 11/04/19 09:44 Last Admin: 11/01/19 12:29 Dose: 100 mls/hr Ketorolac Tromethamine (Toradol) 15 mg IVPUSH Q8H PRN PRN Reason: Headache/Pain Last Admin: 11/01/19 20:31 Dose: 15 mg Meperidine HCl (Meperidine) 50 mg IVPUSH Q4H PRN PRN Reason: Pain (severe 7-10) Last Admin: 11/01/19 15:23 Dose: 50 mg Morphine Sulfate (Morphine) 2 mg IVPUSH Q2H PRN PRN Reason: Pain (severe 7-10) Stop: 11/01/19 23:56 Last Admin: 11/01/19 01:08 Dose: 2 mg Ondansetron HCl (Zofran) 4 mg IV Q6H PRN PRN Reason: Nausea/Vomiting Last Admin: 11/01/19 20:32 Dose: 4 mg Discontinued Medications Hydromorphone HCl (Dilaudid) 0.25 mg IVPUSH ONETIME ONE Stop: 10/31/19 17:09 Last Admin: 10/31/19 17:18 Dose: 0.25 mg Hydromorphone HCl (Dilaudid) 0.5 mg IVPUSH ONETIME ONE Stop: 10/31/19 17:49 Last Admin: 10/31/19 18:07 Dose: 0.5 mg Hydromorphone HCl (Dilaudid) 0.5 mg IVPUSH ONETIME ONE Stop: 10/31/19 20:16 Last Admin: 10/31/19 20:23 Dose: 0.5 mg Dextrose/Sodium Chloride (Dextrose 5%-Normal Saline) 1,000 mls @ 999 mls/hr IV ASDIRECTED [facility] Last Admin: 10/31/19 17:22 Dose: 999 mls/hr Lactated Ringer's (Ringers, Lactated) 1,000 mls @ 999 mls/hr IV ONETIME ONE Stop: 11/02/19 00:47 Last Admin: 11/01/19 01:10 Dose: 999 mls/hr Magnesium Sulfate 2 gm/ Premix 50 mls @ 25 mls/hr IV ONETIME ONE Stop: 11/01/19 13:29 Last Admin: 11/01/19 12:29 Dose: 25 mls/hr Ketorolac Tromethamine (Toradol) 30 mg IVPUSH ONETIME [facility] Last Admin: 10/31/19 17:20 Dose: 30 mg Metoclopramide HCl (Reglan) 5 mg IVPUSH ONETIME ONE Stop: 10/31/19 17:09 Last Admin: 10/31/19 17:16 Dose: 5 mg Sepsis Event Note - Evaluation Sepsis Screening Result: No Definite Risk - Focused Exam Vital Signs: Vital Signs Temp Pulse Resp BP Pulse Ox 11/01/19 20:30 98.6 F 94 18 157/75 H 92 L 11/01/19 14:21 98.2 F 87 16 148/79 H 92 L Date Exam was Performed: 11/01/19 Time Exam was Performed: 21:41 - Problem List & Annotations (1) Dyslipidemia SNOMED Code(s): 180387324 Code(s): E78.5 - HYPERLIPIDEMIA, UNSPECIFIED Status: Acute Current Visit : Yes (2) Depression SNOMED Code(s): 96676051 Code(s): F32.9 - MAJOR DEPRESSIVE DISORDER, SINGLE EPISODE, UNSPECIFIED Status: Acute Current Visit: Yes (3) Anxiety SNOMED Code(s): 67591313 Code(s): F41.9 - ANXIETY DISORDER, UNSPECIFIED Status: Acute Current Visit: Yes (4) Abdominal pain SNOMED Code(s): 19947886 Code(s): R10.9 - UNSPECIFIED ABDOMINAL PAIN Status: Acute Current Visit: Yes Qualifiers: Abdominal location: epigastric Qualified Code(s): R10.13 - Epigastric pain (5) Pancreatitis, acute SNOMED Code(s): 819996105 Code(s): K85.90 - ACUTE PANCREATITIS WITHOUT NECROSIS OR INFECTION, UNSP Status: Acute Current Visit: Yes Qualifiers: Pancreatitis type: drug induced Acute pancreatitis complication: no infection or necrosis Qualified Code(s): K85.30 - Drug induced acute pancreatitis without necrosis or infection - My Orders Last 24 Hours: My Active Orders 10/31/19 23:45 Lactated Ringers [Ringers, Lactated] 1,000 ml IV ASDIRECTED 10/31/19 23:47 Ambulate [RC] 09,15,21 Blood Glucose Check, Bedside [RC] Q6HR Vital Signs [RC] 03,09,15,21 Meperidine 50 mg IVPUSH Q4H PRN Resuscitation Status Routine 10/31/19 23:48 Oxygen Therapy [RC] PRN VTE/DVT Education [RC] DAILY 10/31/19 23:50 Intake and Output [RC] Q4HR 10/31/19 23:56 Morphine 2 mg IVPUSH Q2H PRN Ondansetron [Zofran] 4 mg IV Q6H PRN 11/01/19 05:15 CALCIUM, IONIZED, SERUM [REF] AM 11/01/19 11:24 Antiembolic Devices [RC] BID DAVE Hose [Antiembolic Hose] [OM.PC] Routine 11/01/19 14:11 Admission Status [Patient Status] [ADT] Routine 11/01/19 20:10 Ketorolac [Toradol] 15 mg IVPUSH Q8H PRN 11/01/19 Breakfast Nothing per Oral Now Diet [DIET] 11/02/19 Breakfast Clear Liquid Diet [DIET] - Plan Plan:: Acute pancreatitis, unknown etiology Patient denies drinking alcohol or any other substance and denies use of illicit drugs Possible etiology: * Drug induced, however this is rare < 5% of cases and none of her medications are on the list * Biliary is unlikely due to normal liver function tests * Triglyceridemia is also unlikely since patient verbalizes normal levels 1 week ago * She denies any alcohol ingestion * She denies any trauma * Calcium is normal Patient does not have any signs of SIRS at this time or any other indications that require an ICU admission No signs of acute organ failure at this time, grade is mild Pain control with meperidine, preferably over morphine due to possibility of sphincter of Oddi dysfunction with morphine, but if meperidine doesnt work we will use morphine, will escalate if needed PLAN - 1L fluid bolus with LR - Maintenance rate at 10ml/kg/hr recommended, will start at 100ml/hr and reassess q6h - Goal urine output >0.5ml/kg/hr, 35ml/hr - Goal HR < 120bpm, O2 sat > 95% and MAP between 65-85 - Repeat BUN and Hct in AM, earlier if VS change - Ionized calcium in AM - Pain control with meperidine, preferably over morphine - Glucose checks every 6 hours, if hyperglycemic will start insulin - Triglyceride level STAT - CT abdomen - Abdominal US in AM PROPHYLAXIS DVT- ambulation GI- not indicated CODE STATUS: FULL CODE DISPOSITION: Patient will be admitted for IV fluid repletion and pain control.
[2019-11-01] MEDS ORDERED: Lactated Ringers 1,000 ML IV ONE (23:47)
[2019-11-02] MEDS: Ketorolac 15 MG/ML SDV IVPUSH PRN ×2 (04:09→14:46)
[2019-11-02] MEDS: Lactated Ringers 1,000 ML IV SCH ×2 (09:17→19:30)
[2019-11-02] MEDS: Acetaminophen/HYDROcodone 325-5 MG Tab PO PRN ×2 (11:57→20:19)
[2019-11-02] MEDS: Sennosides 8.6 MG Tab PO SCH ×2 (12:05→20:20)
[2019-11-02] MEDS ORDERED: Lisinopril 10 MG Tab PO ONE (15:30)
[2019-11-02] MEDS ORDERED: hydrALAZINE 20 MG/ML SDV IVPUSH PRN (17:02)
[2019-11-02] MEDS ORDERED: LORazepam 0.5 MG Tab PO ONE (17:10)
[2019-11-02] MEDS ORDERED: LORazepam 0.5 MG Tab PO PRN (18:24)
--- NOTE | 2019-11-02 20:47 | PCM.PN ---
- General Info Date of Service: 11/02/19 - Patient Data Vitals - Most Recent: Last Vital Signs Temp 98.1 F 11/02/19 14:42 Pulse 88 11/02/19 14:42 Resp 20 11/02/19 14:42 BP 167/88 H 11/02/19 18:12 Pulse Ox 99 11/02/19 14:42 Weight - Most Recent: 76.799 kg I&O - Last 24 Hours: Intake & Output 11/02/19 11/02/19 11/02/19 06:59 14:59 22:59 Intake Total 0818 633 7654 Output Total 1050 800 Balance 888 520 6859 Lab Results Last 24 Hours: Laboratory Results - last 24 hr 11/02/19 11/02/19 11/02/19 Range/Units 00:25 07:02 08:26 Sodium 144 (136-145) mEq/L Potassium 3.9 (3.5-5.1) mEq/L Chloride 107 (98-107) mEq/L Carbon Dioxide 30 (21-32) mEq/L Anion Gap 10.9 (5-15) BUN 11 (7-18) mg/dL Creatinine 0.9 (0.55-1.02) mg/dL Est Cr Clr Drug Dosing 60.67 mL/min Estimated GFR (MDRD) > 60 (>60) mL/min BUN/Creatinine Ratio 12.2 L (14-18) Glucose 102 (80-115) mg/dL POC Glucose 112 105 (80-115) mg/dL Calcium 8.6 (8.5-10.1) mg/dL Phosphorus 3.0 (2.6-4.7) mg/dL Magnesium 2.0 (1.8-2.4) mg/dl Total Bilirubin 0.4 (0.2-1.0) mg/dL AST 17 (15-37) U/L ALT 27 (14-59) U/L Alkaline Phosphatase 82 (46-116) U/L Total Protein 6.3 L (6.4-8.2) g/dl Albumin 3.0 L (3.4-5.0) g/dl Globulin 3.3 gm/dL Albumin/Globulin Ratio 0.9 L (1-2) 11/02/19 Range/Units 11:34 Sodium (136-145) mEq/L Potassium (3.5-5.1) mEq/L Chloride (98-107) mEq/L Carbon Dioxide (21-32) mEq/L Anion Gap (5-15) BUN (7-18) mg/dL Creatinine (0.55-1.02) mg/dL Est Cr Clr Drug Dosing mL/min Estimated GFR (MDRD) (>60) mL/min BUN/Creatinine Ratio (14-18) Glucose (80-115) mg/dL POC Glucose 106 (80-115) mg/dL Calcium (8.5-10.1) mg/dL Phosphorus (2.6-4.7) mg/dL Magnesium (1.8-2.4) mg/dl Total Bilirubin (0.2-1.0) mg/dL AST (15-37) U/L ALT (14-59) U/L Alkaline Phosphatase (46-116) U/L Total Protein (6.4-8.2) g/dl Albumin (3.4-5.0) g/dl Globulin gm/dL Albumin/Globulin Ratio (1-2) Med Orders - Current: Current Medications Hydrocodone Bitart/Acetaminophen ([place] 325-5 Mg) 1 tab PO Q6H PRN PRN Reason: Pain (moderate 4-6) Last Admin: 11/02/19 20:19 Dose: 1 tab Hydralazine HCl (Apresoline) 10 mg IVPUSH Q2H PRN PRN Reason: Hypertension Last Admin: 11/02/19 17:09 Dose: 10 mg Lactated Ringer's (Ringers, Lactated) 1,000 mls @ 100 mls/hr IV ASDIRECTED [facility]INA Last Admin: 11/02/19 19:30 Dose: 100 mls/hr Ketorolac Tromethamine (Toradol) 15 mg IVPUSH Q8H PRN PRN Reason: Headache/Pain Last Admin: 11/02/19 14:46 Dose: 15 mg Lisinopril (Prinivil) 10 mg PO BEDTIME [facility] Lorazepam (Ativan) 0.5 mg PO Q8H PRN PRN Reason: Anxiety Ondansetron HCl (Zofran) 4 mg IV Q6H PRN PRN Reason: Nausea/Vomiting Last Admin: 11/01/19 20:32 Dose: 4 mg Senna (Senna) 8.6 mg PO BID [facility] Last Admin: 11/02/19 20:20 Dose: 8.6 mg Discontinued Medications Hydromorphone HCl (Dilaudid) 0.25 mg IVPUSH ONETIME ONE Stop: 10/31/19 17:09 Last Admin: 10/31/19 17:18 Dose: 0.25 mg Hydromorphone HCl (Dilaudid) 0.5 mg IVPUSH ONETIME ONE Stop: 10/31/19 17:49 Last Admin: 10/31/19 18:07 Dose: 0.5 mg Hydromorphone HCl (Dilaudid) 0.5 mg IVPUSH ONETIME ONE Stop: 10/31/19 20:16 Last Admin: 10/31/19 20:23 Dose: 0.5 mg Dextrose/Sodium Chloride (Dextrose 5%-Normal Saline) 1,000 mls @ 999 mls/hr IV ASDIRECTED [facility] Last Admin: 10/31/19 17:22 Dose: 999 mls/hr Lactated Ringer's (Ringers, Lactated) 1,000 mls @ 100 mls/hr IV ASDIRECTED [facility] Stop: 11/04/19 09:44 Last Admin: 11/02/19 09:17 Dose: 100 mls/hr Lactated Ringer's (Ringers, Lactated) 1,000 mls @ 999 mls/hr IV ONETIME ONE Stop: 11/02/19 00:47 Last Admin: 11/01/19 01:10 Dose: 999 mls/hr Magnesium Sulfate 2 gm/ Premix 50 mls @ 25 mls/hr IV ONETIME ONE Stop: 11/01/19 13:29 Last Admin: 11/01/19 12:29 Dose: 25 mls/hr Ketorolac Tromethamine (Toradol) 30 mg IVPUSH ONETIME [facility] Last Admin: 10/31/19 17:20 Dose: 30 mg Lisinopril (Prinivil) 10 mg PO ONETIME ONE Stop: 11/02/19 15:31 Last Admin: 11/02/19 15:36 Dose: 10 mg Lorazepam (Ativan) 0.5 mg PO ONETIME ONE Stop: 11/02/19 17:11 Last Admin: 11/02/19 17:30 Dose: 0.5 mg Meperidine HCl (Meperidine) 50 mg IVPUSH Q4H PRN PRN Reason: Pain (severe 7-10) Last Admin: 11/01/19 15:23 Dose: 50 mg Metoclopramide HCl (Reglan) 5 mg IVPUSH ONETIME ONE Stop: 10/31/19 17:09 Last Admin: 10/31/19 17:16 Dose: 5 mg Morphine Sulfate (Morphine) 2 mg IVPUSH Q2H PRN PRN Reason: Pain (severe 7-10) Stop: 11/01/19 23:56 Last Admin: 11/01/19 01:08 Dose: 2 mg Sepsis Event Note - Evaluation Sepsis Screening Result: No Definite Risk - Focused Exam Vital Signs: Vital Signs Temp Pulse Resp BP BP BP Pulse Ox 11/02/19 18:12 167/88 H 11/02/19 16:58 176/94 H 11/02/19 16:54 176/85 H 11/02/19 15:40 162/90 H 11/02/19 15:36 171/81 H 11/02/19 14:42 98.1 F 88 20 164/77 H 99 11/02/19 09:22 90 156/71 H 95 11/02/19 09:21 98.1 F 93 16 156/80 H 90 L Date Exam was Performed: 11/02/19 Time Exam was Performed: 20:47 - Problem List & Annotations (1) Dyslipidemia SNOMED Code(s): 946907239 Code(s): E78.5 - HYPERLIPIDEMIA, UNSPECIFIED Status: Acute Current Visit : Yes (2) Depression SNOMED Code(s): 46192288 Code(s): F32.9 - MAJOR DEPRESSIVE DISORDER, SINGLE EPISODE, UNSPECIFIED Status: Acute Current Visit: Yes (3) Anxiety SNOMED Code(s): 63324152 Code(s): F41.9 - ANXIETY DISORDER, UNSPECIFIED Status: Acute Current Visit: Yes (4) Abdominal pain SNOMED Code(s): 32055579 Code(s): R10.9 - UNSPECIFIED ABDOMINAL PAIN Status: Acute Current Visit: Yes Qualifiers: Abdominal location: epigastric Qualified Code(s): R10.13 - Epigastric pain (5) Pancreatitis, acute SNOMED Code(s): 651039664 Code(s): K85.90 - ACUTE PANCREATITIS WITHOUT NECROSIS OR INFECTION, UNSP Status: Acute Current Visit: Yes Qualifiers: Pancreatitis type: drug induced Acute pancreatitis complication: no infection or necrosis Qualified Code(s): K85.30 - Drug induced acute pancreatitis without necrosis or infection - My Orders Last 24 Hours: My Active Orders 11/01/19 20:10 Ketorolac [Toradol] 15 mg IVPUSH Q8H PRN 11/02/19 11:49 Acetaminophen/HYDROcodone [[place] 325-5 MG] 1 tab PO Q6H PRN 11/02/19 12:00 Sennosides [Senna] 8.6 mg PO BID 11/02/19 17:02 hydrALAZINE [Apresoline] 10 mg IVPUSH Q2H PRN 11/02/19 18:24 LORazepam [Ativan] 0.5 mg PO Q8H PRN 11/02/19 19:30 Lactated Ringers [Ringers, Lactated] 1,000 ml IV ASDIRECTED 11/02/19 Breakfast Clear Liquid Diet [DIET] 11/03/19 21:00 lisinopriL [Prinivil] 10 mg PO BEDTIME - Plan Plan:: Acute pancreatitis, unknown etiology Patient denies drinking alcohol or any other substance and denies use of illicit drugs Possible etiology: * Drug induced, however this is rare < 5% of cases and none of her medications are on the list * Biliary is unlikely due to normal liver function tests * Triglyceridemia is also unlikely since patient verbalizes normal levels 1 week ago * She denies any alcohol ingestion * She denies any trauma * Calcium is normal Patient does not have any signs of SIRS at this time or any other indications that require an ICU admission No signs of acute organ failure at this time, grade is mild Pain control with meperidine, preferably over morphine due to possibility of sphincter of Oddi dysfunction with morphine, but if meperidine doesnt work we will use morphine, will escalate if needed PLAN - 1L fluid bolus with LR - Maintenance rate at 10ml/kg/hr recommended, will start at 100ml/hr and reassess q6h - Goal urine output >0.5ml/kg/hr, 35ml/hr - Goal HR < 120bpm, O2 sat > 95% and MAP between 65-85 - Repeat BUN and Hct in AM, earlier if VS change - Ionized calcium in AM - Pain control with meperidine, preferably over morphine - Glucose checks every 6 hours, if hyperglycemic will start insulin - Triglyceride level STAT - CT abdomen - Abdominal US in AM PROPHYLAXIS DVT- ambulation GI- not indicated CODE STATUS: FULL CODE DISPOSITION: Patient will be admitted for IV fluid repletion and pain control.
[2019-11-03] MEDS: Ketorolac 15 MG/ML SDV IVPUSH PRN ×2 (00:27→21:34)
[2019-11-03] MEDS: Lactated Ringers 1,000 ML IV SCH ×2 (05:13→15:54)
[2019-11-03] MEDS: Sennosides 8.6 MG Tab PO SCH ×2 (09:30→21:35)
[2019-11-03] MEDS ORDERED: Lactulose Soln 10 GM/15 ML 30 ML UD Cup PO SCH (11:00)
[2019-11-03] MEDS: Acetaminophen/HYDROcodone 325-5 MG Tab PO PRN (15:53)
--- NOTE | 2019-11-03 18:29 | PCM.PN ---
- General Info Date of Service: 11/03/19 - Patient Data Vitals - Most Recent: Last Vital Signs Temp 98.8 F 11/03/19 14:59 Pulse 99 11/03/19 14:59 Resp 18 11/03/19 14:59 BP 161/92 H 11/03/19 14:59 Pulse Ox 95 11/03/19 14:59 Weight - Most Recent: 74.48 kg I&O - Last 24 Hours: Intake & Output 11/03/19 11/03/19 11/03/19 06:59 14:59 22:59 Intake Total 2240 240 1880 Output Total 1700 800 Balance 668 788 7354 Med Orders - Current: Current Medications Hydrocodone Bitart/Acetaminophen ([place] 325-5 Mg) 1 tab PO Q6H PRN PRN Reason: Pain (moderate 4-6) Last Admin: 11/03/19 15:53 Dose: 1 tab Hydralazine HCl (Apresoline) 10 mg IVPUSH Q2H PRN PRN Reason: Hypertension Last Admin: 11/02/19 17:09 Dose: 10 mg Lactated Ringer's (Ringers, Lactated) 1,000 mls @ 100 mls/hr IV ASDIRECTED [facility] Last Admin: 11/03/19 15:54 Dose: 100 mls/hr Ketorolac Tromethamine (Toradol) 15 mg IVPUSH Q8H PRN PRN Reason: Headache/Pain Last Admin: 11/03/19 00:27 Dose: 15 mg Lisinopril (Prinivil) 10 mg PO BEDTIME [facility] Lorazepam (Ativan) 0.5 mg PO Q8H PRN PRN Reason: Anxiety Ondansetron HCl (Zofran) 4 mg IV Q6H PRN PRN Reason: Nausea/Vomiting Last Admin: 11/01/19 20:32 Dose: 4 mg Senna (Senna) 8.6 mg PO BID [facility] Last Admin: 11/03/19 09:30 Dose: 8.6 mg Venlafaxine HCl (Effexor Xr) 75 mg PO BEDTIME [facility] Discontinued Medications Hydromorphone HCl (Dilaudid) 0.25 mg IVPUSH ONETIME ONE Stop: 10/31/19 17:09 Last Admin: 10/31/19 17:18 Dose: 0.25 mg Hydromorphone HCl (Dilaudid) 0.5 mg IVPUSH ONETIME ONE Stop: 10/31/19 17:49 Last Admin: 10/31/19 18:07 Dose: 0.5 mg Hydromorphone HCl (Dilaudid) 0.5 mg IVPUSH ONETIME ONE Stop: 10/31/19 20:16 Last Admin: 10/31/19 20:23 Dose: 0.5 mg Dextrose/Sodium Chloride (Dextrose 5%-Normal Saline) 1,000 mls @ 999 mls/hr IV ASDIRECTED [facility] Last Admin: 10/31/19 17:22 Dose: 999 mls/hr Lactated Ringer's (Ringers, Lactated) 1,000 mls @ 100 mls/hr IV ASDIRECTED [facility] Stop: 11/04/19 09:44 Last Admin: 11/02/19 09:17 Dose: 100 mls/hr Lactated Ringer's (Ringers, Lactated) 1,000 mls @ 999 mls/hr IV ONETIME ONE Stop: 11/02/19 00:47 Last Admin: 11/01/19 01:10 Dose: 999 mls/hr Magnesium Sulfate 2 gm/ Premix 50 mls @ 25 mls/hr IV ONETIME ONE Stop: 11/01/19 13:29 Last Admin: 11/01/19 12:29 Dose: 25 mls/hr Ketorolac Tromethamine (Toradol) 30 mg IVPUSH ONETIME [facility] Last Admin: 10/31/19 17:20 Dose: 30 mg Lactulose (Cephulac) 20 gm PO Q6H [facility] Last Admin: 11/03/19 11:26 Dose: 20 gm Lisinopril (Prinivil) 10 mg PO ONETIME ONE Stop: 11/02/19 15:31 Last Admin: 11/02/19 15:36 Dose: 10 mg Lorazepam (Ativan) 0.5 mg PO ONETIME ONE Stop: 11/02/19 17:11 Last Admin: 11/02/19 17:30 Dose: 0.5 mg Meperidine HCl (Meperidine) 50 mg IVPUSH Q4H PRN PRN Reason: Pain (severe 7-10) Last Admin: 11/01/19 15:23 Dose: 50 mg Metoclopramide HCl (Reglan) 5 mg IVPUSH ONETIME ONE Stop: 10/31/19 17:09 Last Admin: 10/31/19 17:16 Dose: 5 mg Morphine Sulfate (Morphine) 2 mg IVPUSH Q2H PRN PRN Reason: Pain (severe 7-10) Stop: 11/01/19 23:56 Last Admin: 11/01/19 01:08 Dose: 2 mg Sepsis Event Note - Evaluation Sepsis Screening Result: No Definite Risk - Focused Exam Vital Signs: Vital Signs Temp Pulse Resp BP Pulse Ox 11/03/19 14:59 98.8 F 99 18 161/92 H 95 11/03/19 08:05 98.1 F 94 16 164/78 H 97 Date Exam was Performed: 11/03/19 Time Exam was Performed: 18:29 - Problem List & Annotations (1) Dyslipidemia SNOMED Code(s): 975617561 Code(s): E78.5 - HYPERLIPIDEMIA, UNSPECIFIED Status: Acute Current Visit : Yes (2) Depression SNOMED Code(s): 03403229 Code(s): F32.9 - MAJOR DEPRESSIVE DISORDER, SINGLE EPISODE, UNSPECIFIED Status: Acute Current Visit: Yes (3) Anxiety SNOMED Code(s): 17566835 Code(s): F41.9 - ANXIETY DISORDER, UNSPECIFIED Status: Acute Current Visit: Yes (4) Abdominal pain SNOMED Code(s): 43295628 Code(s): R10.9 - UNSPECIFIED ABDOMINAL PAIN Status: Acute Current Visit: Yes Qualifiers: Abdominal location: epigastric Qualified Code(s): R10.13 - Epigastric pain (5) Pancreatitis, acute SNOMED Code(s): 157848288 Code(s): K85.90 - ACUTE PANCREATITIS WITHOUT NECROSIS OR INFECTION, UNSP Status: Acute Current Visit: Yes Qualifiers: Pancreatitis type: drug induced Acute pancreatitis complication: no infection or necrosis Qualified Code(s): K85.30 - Drug induced acute pancreatitis without necrosis or infection - My Orders Last 24 Hours: My Active Orders 11/02/19 18:24 LORazepam [Ativan] 0.5 mg PO Q8H PRN 11/02/19 19:30 Lactated Ringers [Ringers, Lactated] 1,000 ml IV ASDIRECTED 11/03/19 21:00 Venlafaxine [Effexor XR] 75 mg PO BEDTIME lisinopriL [Prinivil] 10 mg PO BEDTIME 11/03/19 Dinner Soft Diet [DIET] 11/04/19 05:00 BMP [BASIC METABOLIC PANEL,BMP] [CHEM] Routine CBC WITH AUTO DIFF [HEME] Routine MAGNESIUM [CHEM] Routine PHOSPHORUS [CHEM] Routine - Plan Plan:: Acute pancreatitis, unknown etiology Patient denies drinking alcohol or any other substance and denies use of illicit drugs Possible etiology: * Drug induced, however this is rare < 5% of cases and none of her medications are on the list * Biliary is unlikely due to normal liver function tests * Triglyceridemia is also unlikely since patient verbalizes normal levels 1 week ago * She denies any alcohol ingestion * She denies any trauma * Calcium is normal Patient does not have any signs of SIRS at this time or any other indications that require an ICU admission No signs of acute organ failure at this time, grade is mild Pain control with meperidine, preferably over morphine due to possibility of sphincter of Oddi dysfunction with morphine, but if meperidine doesnt work we will use morphine, will escalate if needed PLAN - 1L fluid bolus with LR - Maintenance rate at 10ml/kg/hr recommended, will start at 100ml/hr and reassess q6h - Goal urine output >0.5ml/kg/hr, 35ml/hr - Goal HR < 120bpm, O2 sat > 95% and MAP between 65-85 - Repeat BUN and Hct in AM, earlier if VS change - Ionized calcium in AM - Pain control with meperidine, preferably over morphine - Glucose checks every 6 hours, if hyperglycemic will start insulin - Triglyceride level STAT - CT abdomen - Abdominal US in AM PROPHYLAXIS DVT- ambulation GI- not indicated CODE STATUS: FULL CODE DISPOSITION: Patient will be admitted for IV fluid repletion and pain control.
[2019-11-03] MEDS ORDERED: Venlafaxine 75 MG Cap.ER PO SCH (21:00)
[2019-11-03] MEDS ORDERED: Lisinopril 10 MG Tab PO SCH (21:00)
[2019-11-04] MEDS: Acetaminophen/HYDROcodone 325-5 MG Tab PO PRN (00:02)
[2019-11-04] MEDS ORDERED: Magnesium Oxide 400 MG Tab PO ONE (08:00)
[2019-11-04 08:16] VITALS: BP 144/74; PULSE 79
[2019-11-04] MEDS: Potassium Chloride 20 MEQ Tab.ER PO SCH ×2 (08:45→11:04)
[2019-11-04] MEDS: Sennosides 8.6 MG Tab PO SCH (08:45)
--- NOTE | 2019-11-04 11:04 | PCM.DCSUM1 ---
Discharge Summary - Hospital Course Diagnosis: Stroke: No - Discharge Data Discharge Date: 11/04/19 Discharge Disposition: Home, Self-Care 01 Condition: Good - Referral to Home Health Primary Care Physician: Ml Grimaldo NP - Discharge Diagnosis/Problem(s) (1) Pancreatitis, acute SNOMED Code(s): 010619437 ICD Code: K85.90 - ACUTE PANCREATITIS WITHOUT NECROSIS OR INFECTION, UNSP Status: Acute Current Visit: Yes Qualifiers: Pancreatitis type: drug induced Acute pancreatitis complication: no infection or necrosis Qualified Code(s): K85.30 - Drug induced acute pancreatitis without necrosis or infection (2) Dyslipidemia SNOMED Code(s): 408291375 ICD Code: E78.5 - HYPERLIPIDEMIA, UNSPECIFIED Status: Acute Current Visit : Yes (3) Depression SNOMED Code(s): 84392129 ICD Code: F32.9 - MAJOR DEPRESSIVE DISORDER, SINGLE EPISODE, UNSPECIFIED Status: Acute Current Visit: Yes (4) Anxiety SNOMED Code(s): 45981268 ICD Code: F41.9 - ANXIETY DISORDER, UNSPECIFIED Status: Acute Current Visit: Yes (5) Abdominal pain SNOMED Code(s): 52836730 ICD Code: R10.9 - UNSPECIFIED ABDOMINAL PAIN Status: Acute Current Visit : Yes Qualifiers: Abdominal location: epigastric Qualified Code(s): R10.13 - Epigastric pain - Patient Instructions Diet: GI Soft/Low Residue/Low Fiber Diet, Other: Please advance diet slowly taking in to account your pain and discomfort. Notify Provider of: Fever, Increased Pain, Swelling and Redness, Drainage, Nausea and/or Vomiting - Discharge Plan *PRESCRIPTION DRUG MONITORING PROGRAM REVIEWED*: Not Applicable *COPY OF PRESCRIPTION DRUG MONITORING REPORT IN PATIENT [facility]: Not Applicable Prescriptions/Med Rec: Acetaminophen/HYDROcodone [[place] 325-5 MG] 1 tab PO Q6H PRN #14 tablet PRN Reason: Pain (Moderate 4-6) lisinopriL [Prinivil] 10 mg PO BEDTIME #30 tablet Sennosides [Senna] 8.6 mg PO BID #14 tablet Home Medications: Home Meds Venlafaxine [Effexor XR] 75 mg PO BEDTIME 08/28/14 [History] Evolocumab [Repatha Syringe] 1 injection INJECT ASDIRECTED 10/31/19 [History] Acetaminophen/HYDROcodone [[place] 325-5 MG] 1 tab PO Q6H PRN #14 tablet 11/04/19 [Rx] Sennosides [Senna] 8.6 mg PO BID #14 tablet 11/04/19 [Rx] lisinopriL [Prinivil] 10 mg PO BEDTIME #30 tablet 11/04/19 [Rx] Oxygen Therapy Mode: Room Air Patient Handouts: Acute Pancreatitis, [id number], Fat and Cholesterol Restricted Eating Plan, [id number] Forms: ED Department Discharge Referrals: Jovanna Serrato NP [Ordering Only Provider] - 11/19/19 10:15 am ( Gastroenterology appointment in [place] at [facility] for november 18 at 10: 15 [place] time. Come 30 minutes prior to the appointment to register, bring insurance cards and photo ID.) Ml Grimaldo NP [Primary Care Provider] - - General Info Date of Service: 11/04/19 Subjective Update: Feeling better Still a little sore in abdominal area Slept [place] Tolerated diet - Patient Data Vitals - Most Recent: Last Vital Signs Temp 97.7 F 11/04/19 07:26 Pulse 79 11/04/19 07:26 Resp 16 11/04/19 07:26 BP 144/74 H 11/04/19 07:26 Pulse Ox 96 11/04/19 07:26 Weight - Most Recent: 74.344 kg
== END 2019-11-04 12:30 | disposition home or self-care (01) | DRG 440 ==
LOC: JD.ED 16:43 → JD.MS 21:44 → OBSVTOIN 11-01 14:11
PROVIDERS: ADMIT Internal Medicine; ATTEND Internal Medicine
DX: K85.30 Drug induced acute pancreatitis without necrosis or infection (principal); T50.905A Adverse effect of unspecified drugs, medicaments and biological substances, initial encounter; E78.5 Hyperlipidemia, unspecified; F32.9 Major depressive disorder, single episode, unspecified; F41.9 Anxiety disorder, unspecified; E78.00 Pure hypercholesterolemia, unspecified; K59.09 Other constipation; Z88.5 Allergy status to narcotic agent; Z88.1 Allergy status to other antibiotic agents; Z88.8 Allergy status to other drugs, medicaments and biological substances; Z79.899 Other long term (current) drug therapy
CPT/HCPCS: 36415; 74018; 74018-26; 74177; 74177-26; 76700; 76700-26; 80048; 80053; 81001; 82150; 82330; 82962; 82977; 83036; 83690; 83735; 84100; 84478; 84484; 85025; 85610; 85730; 86140; 96361; 96365; 96366; 96374; 96375; 96376; 99284; 99285-25; A9270-GY; G0378; J0360; J1170; J1885; J2175; J2270; J2405; J2765; J3475; J7042; J7120

== ENCOUNTER 2022-05-26 19:15 | Emergency (ER) | payer MEDICARE, OTHER ==
[2022-05-26 19:48] VITALS: PULSE 91
[2022-05-26 20:44] VITALS: BP 141/116
== END 2022-05-26 20:42 | disposition home or self-care (01) ==
LOC: JD.ED 19:15
DX: I10 Essential (primary) hypertension (principal); I25.10 Atherosclerotic heart disease of native coronary artery without angina pectoris; Z88.5 Allergy status to narcotic agent; Z88.1 Allergy status to other antibiotic agents; Z88.8 Allergy status to other drugs, medicaments and biological substances; Z79.899 Other long term (current) drug therapy; Z87.891 Personal history of nicotine dependence
CPT/HCPCS: 99283

== ENCOUNTER 2023-09-11 18:18 | Emergency (ER) | payer MEDICARE, OTHER ==
[2023-09-11] MEDS ORDERED: Sodium Chloride 0.9% 10 ML Syringe FLUSH PRN (19:08)
[2023-09-11 19:43] LABS: BASOPHILS PERCENT AUTO 0.5 % (0.0-1.0); EOSINOPHILS PERCENT AUTO 0.2 % (0.0-6.0); HEMATOCRIT 46.2 % (37.0-47.0); HEMOGLOBIN 15.4 gm/dl (12.0-16.0); IMMATURE GRAN ABSOLUTE AUTO 0.01 K/mm3 (0.00-0.05); IMMATURE GRAN PERCENT AUTO 0.2 % (0.0-0.4); LYMPHOCYTES ABSOLUTE AUTO 1.7 K/mm3 (1.0-4.8); LYMPHOCYTES PERCENT AUTO 31.2 % (24.0-44.0); MEAN CORPUSCULAR HEMOGLOBIN 30.9 pg (28.0-32.0); MEAN CORPUSCULAR HGB CONC 33.3 g/dl (32.0-36.0); MEAN CORPUSCULAR VOLUME 92.6 fl (83.0-99.0); MONOCYTES ABSOLUTE AUTO 0.6 K/mm3 (0.0-0.8); MONOCYTES PERCENT AUTO 10.6 % (0.0-8.0); NEUTROPHILS ABSOLUTE AUTO 3.1 K/mm3 (1.8-7.7); NEUTROPHILS PERCENT AUTO 57.3 % (41.0-71.0); PLATELET COUNT,PLT 138 K/mm3 (150-400); RED BLOOD CELL COUNT 4.99 M/mm3 (4.10-5.30); WHITE BLOOD CELL COUNT,WBC 5.48 K/mm3 (3.9-11.3)
[2023-09-11 19:53] LABS: CORONAVIRUS COVID-19 NAA POSITIVE (NEGATIVE); INFLUENZA A NAA NEGATIVE (NEGATIVE); RESPIRATORY SYNCYTIAL VIR NAA NEGATIVE (NEGATIVE)
[2023-09-11 20:09] LABS: ALBUMIN 3.6 g/dl (3.4-5.0); ANION GAP 12.8 (5-15); BILIRUBIN TOTAL 0.4 mg/dL (0.2-1.0); BUN/CREATININE RATIO 11.8 (14-18); C-REACTIVE PROTEIN 1.1 mg/dL (<1.0); CALCIUM 9.6 mg/dL (8.5-10.1); CREATININE 1.1 mg/dL (0.55-1.02); EST CRCL DRUG DOSING (CG) 47.1 mL/min; POTASSIUM,K 3.8 mEq/L (3.5-5.1); PROTEIN TOTAL,TP 7.4 g/dl (6.4-8.2)
[2023-09-11 20:25] LABS: APPEARANCE,URINE CLEAR (Clear); BILIRUBIN,URINE 1+ (Negative); COLOR,URINE YELLOW (Yellow); GLUCOSE,URINE NEGATIVE (Negative); KETONES,URINE TRACE (Negative); LEUKOCYTE ESTERASE,URINE NEGATIVE (Negative); NITRITE,URINE NEGATIVE (Negative); OCCULT BLOOD,URINE 2+ (Negative); PH,URINE 5.5 (5.0-8.0); PROTEIN,URINE 1+ (Negative); UROBILINOGEN,URINE 0.2 (0.2-1.0)
[2023-09-11 20:39] LABS: WBC,URINE 0-5 /hpf (0-5)
[2023-09-11 20:40] LABS: BACTERIA,URINE MODERATE /hpf (FEW); MUCUS,URINE MANY /hpf (FEW)
[2023-09-11 22:09] VITALS: BP 155/74; PULSE 80
== END 2023-09-11 20:40 | disposition home or self-care (01) ==
LOC: JD.ED 18:18
DX: U07.1 COVID-19 (principal); I10 Essential (primary) hypertension; I25.10 Atherosclerotic heart disease of native coronary artery without angina pectoris; Z95.5 Presence of coronary angioplasty implant and graft; Z88.8 Allergy status to other drugs, medicaments and biological substances; Z88.1 Allergy status to other antibiotic agents; Z88.5 Allergy status to narcotic agent; Z79.899 Other long term (current) drug therapy
CPT/HCPCS: 0241U; 36415; 71046; 80053; 81001; 83735; 84484; 85025; 86140; 93005; 99284

== ENCOUNTER 2024-03-13 15:11 | Emergency (ER) | payer MEDICARE, OTHER ==
[2024-03-13 19:20] VITALS: BP 142/99; PULSE 66
== END 2024-03-13 18:30 | disposition home or self-care (01) ==
LOC: JD.ED 15:11
DX: S16.1XXA Strain of muscle, fascia and tendon at neck level, initial encounter (principal); S06.0X0A Concussion without loss of consciousness, initial encounter; I10 Essential (primary) hypertension; E78.00 Pure hypercholesterolemia, unspecified; Z86.16 Personal history of COVID-19; Z79.899 Other long term (current) drug therapy; Z88.8 Allergy status to other drugs, medicaments and biological substances; Z88.1 Allergy status to other antibiotic agents; Z88.5 Allergy status to narcotic agent; V89.2XXA Person injured in unspecified motor-vehicle accident, traffic, initial encounter
CPT/HCPCS: 70450; 70450-26; 72125; 72125-26; 99283; 99284